=== PATIENT | male | born 1990 | race African-American/Black ===

== ENCOUNTER 2016-08-29 02:06 | Emergency (ER) | payer BC ==
[~2016-08-29] VITALS: Ht 193 cm; Wt 102.1 kg
[~2016-08-29 02:06] MED LIST: IBUPROFEN 800800 MG PO; NAPROSYN500 MG PO
[2016-08-29 02:30] VITALS: BP 143/93
[2016-08-29 03:02] LABS: URINE BILIRUBIN NEGATIVE (Negative); URINE BLOOD NEGATIVE (Negative); URINE COLOR YELLOW; URINE GLUCOSE-RANDOM* NEGATIVE (Negative); URINE KETONES NEGATIVE (Negative); URINE LEUKOCYTES-REFLEX NEGATIVE (Negative); URINE PROTEIN (DIPSTICK) NEGATIVE (Negative); URINE UROBILINOGEN 0.2 E.U./dl (0.2-1.0)
== END 2016-08-29 03:00 | disposition home or self-care (01) ==
LOC: ER 02:06
PROVIDERS: Emergency Medicine
DX: N50.812 Left testicular pain (principal); Z98.890 Other specified postprocedural states; F17.210 Nicotine dependence, cigarettes, uncomplicated; F10.99 Alcohol use, unspecified with unspecified alcohol-induced disorder

== ENCOUNTER 2017-05-20 13:49 | Emergency (ER) | payer BC ==
[~2017-05-20] VITALS: Ht 193 cm; Wt 104.3 kg
[2017-05-20] MEDS ORDERED: NORCO 5-325 TA1 EACH PO (14:36)
== END 2017-05-20 15:30 | disposition home or self-care (01) ==
LOC: ER 13:49
DX: S16.1XXA Strain of muscle, fascia and tendon at neck level, initial encounter (principal); M54.9 Dorsalgia, unspecified; F10.99 Alcohol use, unspecified with unspecified alcohol-induced disorder; F17.210 Nicotine dependence, cigarettes, uncomplicated; V49.09XA Driver injured in collision with other motor vehicles in nontraffic accident, initial encounter; Y93.89 Activity, other specified; Y92.89 Other specified places as the place of occurrence of the external cause; Y99.8 Other external cause status